=== PATIENT | female | born 1940 | race Caucasian/White ===

== ENCOUNTER → 2017-04-07 09:39 | Outpatient (CLI) | payer MEDICARE, BC, SELFPAY ==
--- NOTE | 2017-04-07 09:45 | MM_ITS ---
MM Dig screening mamm BI w/CAD CAD Screening COMPARISON: Digital mammograms 03/12/2015 and 2016 INDICATION: There is no personal or family history of breast cancer. There has been previous biopsy left breast. TECHNIQUE: Standard CC and MLO images were obtained. R2 CAD reviewed. FINDINGS: Prominent fibroglandular densities are seen in the subareolar regions of both breast slightly more diffuse right breast than left. There is a mole marker each breast. There are couple benign-appearing calcifications left breast single benign-appearing calcification right breast. There is no suspicious lesion and there are no suspicious microcalcifications. IMPRESSION: Stable exam with no suspicious lesion seen BI-RADS Category: 2 Benign Finding(s) RECOMMENDED FOLLOW-UP: 1YR - 1 YEAR FOLLOW-UP (A letter has been sent to the patient regarding results of the study.)
== END ==
PROVIDERS: Family Provider Family Medicine; PCP Family Medicine; Visit Provider Family Medicine
DX: Z12.31 Encounter for screening mammogram for malignant neoplasm of breast (principal)
CPT/HCPCS: 77067

== ENCOUNTER → 2018-04-11 08:37 | Outpatient (CLI) | payer MEDICARE, BC, SELFPAY ==
--- NOTE | 2018-04-11 08:40 | MM_ITS ---
MM Dig screening mamm BI w/CAD CAD Screening COMPARISON: Digital mammograms with CAD 04/07/2017 and to 2016 INDICATION: There is no personal or family history of breast cancer. There is been previous biopsy left breast for benign disease. TECHNIQUE: Standard CC and MLO images were obtained. R2 CAD reviewed. FINDINGS: Moderate fiber glandular densities are seen in both breasts more prominent right than left. There is a mole marker in each breast. There are stable tiny nodular densities lower central portion of the right breast. There is no suspicious lesion and there are no suspicious microcalcifications. IMPRESSION: Moderate breast density with no suspicious lesion seen BI-RADS Category: 2 Benign Finding(s) RECOMMENDED FOLLOW-UP: 1YR - 1 YEAR FOLLOW-UP (A letter has been sent to the patient regarding results of the study.)
== END ==
PROVIDERS: PCP Family Medicine; Visit Provider Family Medicine
DX: Z12.31 Encounter for screening mammogram for malignant neoplasm of breast (principal)
CPT/HCPCS: 77067

== ENCOUNTER 2020-05-11 10:09 | Emergency (ER) | payer MEDICARE, BC, SELFPAY ==
[2020-05-11 10:23] VITALS: BP 132/78; PULSE 92; RESP 20; TEMP 36.8; O2SAT 98; BMI 26.5
[2020-05-11 10:34] VITALS: BP 129/83; PULSE 87; RESP 16; TEMP 36.8; O2SAT 99; BMI 26.6
[2020-05-11 10:45] LABS: Apearance,Urine Clear (Clear); Bilirubin,Urine 1+ (Negative); Blood, Urine 2+ (Negative); Color,Urine Yellow (Yellow); Glucose,Urine (UA) Negative (Negative); Ketones,Urine Negative (Negative); Protein,Urine 1+ (Negative); UTC Leukocyte Esterase,Urine Trace (Negative); UTC Nitrate,Urine Negative (Negative); Urobilinogen,Urine 0.2 EU/dl (0.2)
--- NOTE | 2020-05-11 10:56 | HMH.EDUTC ---
[facility] [place] Disposition Clinical Impression: UTI (urinary tract infection) Qualifiers: Urinary tract infection type: acute cystitis Hematuria presence: without hematuria Qualified Code(s): N30.00 - Acute cystitis without hematuria Disposition: Home, Self-Care Condition on Discharge: Good Instructions: Urinary Tract Infection Additional Instructions: Increase fluids, water and not soda or tea. Can drink cranberry juice or cranberry extract. White front to back Wear cotton underwear Empty bladder after intercourse Start antibiotics tomorrow and make sure you take the full course although you may start to see improvement over the next 48 hours. Be sure to follow-up anytime for new or worsening symptoms in 48 hours for wound urine culture results be sure to let you PCP no recent urine for culture so they can request records and ensure that you have appropriate antibiotic if you are not getting better or getting worse. If symptoms worsen or do not improve return or be seen in the ER. Follow-up with primary care this week. Prescriptions: cephALEXin [Cephalexin 500mg Tab] 500 mg PO BID 4 Days #8 tab Transmission Status: Pending to [id number] Referrals: Alonso Sharma MD [Primary Care Provider] - Time of Disposition: 13:08 Medical Decision Making - [place] Inquiry Pt receiving controlled substance: No Vital Signs: 05/11/20 10:23 05/11/20 10:34 05/11/20 11:02 Temperature 98.3 F 98.3 F 98 F Temperature Source Oral Oral Pulse Rate 96 H Pulse Rate [Left Radial] 92 H 87 Respiratory Rate 20 16 14 Blood Pressure 139/84 Blood Pressure [Right Arm] 132/78 129/83 Blood Pressure Mean [Right Arm] 96 98 Blood Pressure Source [Right Arm] Automatic Cuff Blood Pressure Position [Right Arm] Sitting 02 Sat by Pulse Oximetry 98 99 Oxygen Delivery Method Room Air - Lab Data Lab Results 05/11/20 10:23: Urine Color Yellow, Urine Appearance Clear, Urine pH 6.0, Ur Specific [place] 1.010, Urine Protein 1+, Urine Glucose (UA) Negative, Urine Ketones Negative, Urine Blood 2+, Urine Nitrate Negative, Urine Bilirubin 1+ A, Urine Urobilinogen 0.2, Ur Leukocyte Esterase Trace 05/11/20 11:15: WBC 7.6, RBC 4.66, Hgb 13.2, Hct 41.1, MCV 88.4, MCH 28.3, MCHC 32.0, RDW 12.7, Plt Count 228, MPV 8.3, Neut % (Auto) 76.6, Lymph % (Auto) 13.9, [place] % (Auto) 8.0, Eos % (Auto) 1.1, Baso % (Auto) 0.4, Neut # (Auto) 5.8, Lymph # (Auto) 1.1, [place] # (Auto) 0.6, Eos # (Auto) 0.1, Baso # (Auto) 0.0 05/11/20 11:15: Sodium 133 L, Potassium 3.4 L, Chloride 96 L, Carbon Dioxide 28, Anion Gap 12.4, BUN 25 H, Creatinine 1.10 H, Estimated Creat Clear 42, Estimated GFR 48 L, Est GFR ( Amer) 58 L, Glucose 123 H, Calcium 10.1, Total Bilirubin 0.5, AST 30, ALT 28, Alkaline Phosphatase 125, Total Protein 7.7, Albumin 4.1, Globulin 3.6 H, Albumin/Globulin Ratio 1.1 05/11/20 11:15: Lactate 1.2 Result diagrams: 05/11/20 11:15 05/11/20 11:15 Orders (Tests/Meds): ED MEDICATIONS Generic Name Dose Route Start Last Admin Trade Name Freq PRN Reason Stop Dose Admin Sodium Chloride 1,000 mls @ 999 mls/hr 05/11/20 12:30 05/11/20 12:27 Sod Chlor 0.9% 1000ml Bag IV 05/11/20 13:30 999 mls/hr .[id number] GRACE Administration Discontinued Medications Generic Name Dose Route Start Last Admin Trade Name Freq PRN Reason Stop Dose Admin Ceftriaxone Sodium 1 gm 05/11/20 10:56 05/11/20 11:01 Ceftriaxone 1gm Vial IM 05/11/20 10:57 1 gm ONCE ONE Administration Protocol Lidocaine HCl 0 ml 05/11/20 10:56 05/11/20 11:02 Lidocaine 1% 5ml Pf Vial IM 05/11/20 10:57 2 ml ONCE ONE Administration ORDERS Category Date Time Status Urine Culture Stat Micro 05/11/20 10:40 Received - Physician Consults Physician Consulted: nery Time: 11:01 Reason -: Pt condition Comment/Response: discussed ua results and pt condition he recommended labs to check kidney function. called back at 1210 to discussed labs, he recommends 1
[2020-05-11 11:02] VITALS: BP 139/84; PULSE 96; RESP 14; TEMP 36.6
[2020-05-11 11:32] LABS: Basophils % 0.4 % (0.1-2.0); Eosinophils # 0.1 K/mm3 (0.0-0.4); Eosinophils % 1.1 % (0.1-12.0); Hematocrit 41.1 % (37.0-47.0); Hemoglobin 13.2 g/dL (12.2-16.2); Lymphocytes # 1.1 K/mm3 (0.7-4.5); Lymphocytes % 13.9 % (10-50); Mean Corpuscular Hemoglobin 28.3 pg (27.0-31.2); Mean Corpuscular Volume 88.4 fl (81-99); Mean Platelet Volume 8.3 fl (7.4-10.4); Monocytes # 0.6 K/mm3 (0.1-1.0); Neutrophils # 5.8 K/mm3 (1.8-7.8); Neutrophils % 76.6 % (37.0-80.0); Platelet Count 228 K/mm3 (142-424); Red Blood Count 4.66 M/mm3 (4.20-5.40); Red Cell Distribution Width 12.7 % (11.5-17.5); White Blood Count 7.6 K/mm3 (4.8-10.8)
[2020-05-11 11:36] LABS: Chloride 96 mmol/L (98-107); Potassium 3.4 mmoL/L (3.5-5.1); Sodium 133 mmol/L (136-145)
[2020-05-11 11:39] LABS: Alanine Aminotransferase 28 U/L (12-78); Albumin Level 4.1 g/dl (3.5-5.0); Albumin/Globulin Ratio 1.1 (1.1-1.8); Alkaline Phosphatase 125 U/L (38-126); Anion Gap 12.4 mEq/L (5-15); Aspartate Amino Transferase 30 U/L (14-36); Bilirubin,Total 0.5 mg/dl (0.2-1.3); Blood Urea Nitrogen 25 mg/dl (7-17); Carbon Dioxide 28 mmol/L (22.0-30.0); Creatinine Clearance Estimated 42 mL/min (50-200); Estimated Glomerular Filt Rate 48 ml/min (>60); GFR (African American) 58 ML/MIN (>60); Globulin 3.6 g/dL (1.3-3.2); Total Protein,Serum 7.7 g/dl (6.3-8.2)
[2020-05-11 11:40] LABS: Calcium 10.1 mg/dl (8.4-10.2); Glucose 123 mg/dl (74-100); Lactic Acid 1.2 mmol/L (0.7-2.1)
== END 2020-05-11 13:10 | disposition home or self-care (01) ==
PROVIDERS: Emergency Provider Nurse Practitioner Family; PCP Family Medicine
DX: N30.00 Acute cystitis without hematuria (principal); I10 Essential (primary) hypertension; K21.9 Gastro-esophageal reflux disease without esophagitis; E78.5 Hyperlipidemia, unspecified
CPT/HCPCS: G0463; 80053; 81003; 83605; 85025; 87086; 96365; 96372; 99202

== ENCOUNTER → 2020-06-04 09:12 | Outpatient (CLI) | payer MEDICARE, BC, SELFPAY ==
--- NOTE | 2020-06-04 09:13 | MM_ITS ---
PROCEDURE INFORMATION: Exam: MG Screening 3D Mammography Exam date and time: 06/04/2020 9:13 AM Age: 79 years old Clinical indication: Encounter for screening mammogram for malignant neoplasm of breast TECHNIQUE: Imaging protocol: Screening tomosynthesis and 2D mammography including computer-aided detection (CAD) when performed. COMPARISON: 1. MG SCBI MM Dig screening mamm BI w/CAD 04/11/2018 9:05 AM 2. MG SCBI MM Dig screening mamm BI w/CAD 04/07/2017 9:51 AM 3. MG DMDXUWAL DIG MAMM-DX UNI LT W/AVS W/CAD 09/23/2016 2:01 PM 4. MG DMDXUWAL DIG MAMM-DX UNI LT W/AVS W/CAD 03/24/2016 2:13 PM FINDINGS: MAMMOGRAPHY: Breast composition: The breasts are heterogeneously dense, which may obscure small masses. Mass: No new suspicious masses. Architectural distortion: No suspicious distortion. Calcifications: No suspicious calcifications. Asymmetric density: None. Skin thickening: None. Axillary adenopathy: None. IMPRESSION: No mammographic evidence of malignancy. Annual screening is recommended unless otherwise clinically indicated. ASSESSMENT: BI-RADS Category 1: Negative
== END ==
PROVIDERS: PCP Family Medicine; Visit Provider Family Medicine
DX: Z12.31 Encounter for screening mammogram for malignant neoplasm of breast (principal)
CPT/HCPCS: 77063; 77067

== ENCOUNTER → 2021-06-19 09:30 | Outpatient (CLI) | payer MEDICARE, BC, SELFPAY ==
--- NOTE | 2021-06-19 09:41 | MM_ITS ---
PROCEDURE INFORMATION: Exam: MG Bilateral Screening 3D Mammography Exam date and time: 06/19/2021 9:54 AM Age: 80 years old Clinical indication: Screening mammogram. TECHNIQUE: Imaging protocol: Bilateral Screening tomosynthesis and 2D mammography including computer-aided detection (CAD) when performed. COMPARISON: 1. MG MM DIG SCREENING MAMM BI W/CAD 06/04/2020 9:22 AM 2. MG SCBI MM Dig screening mamm BI w/CAD 04/11/2018 9:05 AM 3. MG SCBI MM Dig screening mamm BI w/CAD 04/07/2017 9:51 AM 4. MG DMDXUWAL DIG MAMM-DX UNI LT W/AVS W/CAD 09/23/2016 2:01 PM FINDINGS: MAMMOGRAPHY: Breast composition: The breast is heterogeneously dense, which may obscure small masses. Mass: None. Architectural distortion: No new or suspicious architectural distortion. Calcifications: No new or suspicious calcifications are present Asymmetric density: No new or suspicious asymmetric density is present Skin thickening: None. Axillary adenopathy: None. IMPRESSION: No mammographic evidence of malignancy. Recommend annual screening mammography unless otherwise clinically indicated. ASSESSMENT: BI-RADS category 1: Negative
== END ==
PROVIDERS: PCP Family Medicine; Visit Provider Family Medicine
DX: Z12.31 Encounter for screening mammogram for malignant neoplasm of breast (principal)
CPT/HCPCS: 77063; 77067

== ENCOUNTER → 2022-06-25 09:40 | Outpatient (CLI) | payer MEDICARE, BC, SELFPAY ==
--- NOTE | 2022-06-25 09:45 | MM_ITS ---
PROCEDURE INFORMATION: Exam: MG Bilateral Screening 3D Mammography Exam date and time: 06/25/2022 9:38 AM Age: 81 years old Clinical indication: Screening mammogram TECHNIQUE: Imaging protocol: Bilateral Screening tomosynthesis and 2D mammography including computer-aided detection (CAD) when performed. COMPARISON: 1. MG MM DIG SCREENING MAMM BI W/CAD 06/19/2021 9:54 AM 2. MG MM DIG SCREENING MAMM BI W/CAD 06/04/2020 9:22 AM 3. MG SCBI MM Dig screening mamm BI w/CAD 04/11/2018 9:05 AM 4. MG SCBI MM Dig screening mamm BI w/CAD 04/07/2017 9:51 AM FINDINGS: MAMMOGRAPHY: Breast composition: There are scattered areas of fibroglandular density. Mass: None. Architectural distortion: No new or suspicious architectural distortion. Calcifications: No new or suspicious calcifications are present Asymmetric density: No new or suspicious asymmetric density is present Skin thickening: None. Axillary adenopathy: None. IMPRESSION: No mammographic evidence of malignancy. Recommend annual screening mammography unless otherwise clinically indicated. ASSESSMENT: BI-RADS category 1: Negative
== END ==
PROVIDERS: PCP Family Medicine; Visit Provider Family Medicine
DX: Z12.31 Encounter for screening mammogram for malignant neoplasm of breast (principal)
CPT/HCPCS: 77063; 77067

== ENCOUNTER 2023-07-01 10:38 | Outpatient (CLI) | payer MEDICARE, BC, SELFPAY ==
--- NOTE | 2023-07-01 10:45 | MM_ITS ---
PROCEDURE INFORMATION: Exam: MG Bilateral Screening 3D Mammography Exam date and time: 07/01/2023 10:35 AM Age: 82 years old Clinical indication: Screening examination TECHNIQUE: Imaging protocol: Bilateral Screening tomosynthesis and 2D mammography including computer-aided detection (CAD) when performed. COMPARISON: 1. MG MM DIG SCREENING MAMM BI W/CAD 06/25/2022 9:38 AM 2. MG MM DIG SCREENING MAMM BI W/CAD 06/19/2021 9:54 AM FINDINGS: MAMMOGRAPHY: Breast composition: The breasts are heterogeneously dense, which may obscure small masses. Mass: None. Architectural distortion: None. Calcifications: No suspicious calcifications. Asymmetric density: None. Skin thickening: None. Axillary adenopathy: None. IMPRESSION: No mammographic evidence of malignancy. Annual screening is recommended unless otherwise clinically indicated. ASSESSMENT: BI-RADS Category 1: Negative
== END 2023-07-01 23:59 | disposition home or self-care (01) ==
LOC: RAD 10:39
PROVIDERS: PCP Family Medicine; Visit Provider Family Medicine
DX: Z12.31 Encounter for screening mammogram for malignant neoplasm of breast (principal)
CPT/HCPCS: 77063; 77067

== ENCOUNTER 2023-09-13 15:28 | Outpatient (CLI) | payer MEDICARE, BC, SELFPAY ==
--- NOTE | 2023-09-13 15:42 | XR_ITS ---
FINAL REPORT CLINICAL HISTORY: PAIN IN RIGHT SHOULDER patient states has had knot on right arm for several years, recently started having pain in right shoulder FINDINGS: RIGHT SHOULDER Three views demonstrate no acute fracture or dislocation. The visualized joint spaces are normally aligned. There are mild degenerative changes of the acromioclavicular and glenohumeral joints. The soft tissues are unremarkable. IMPRESSION: No acute process. Reviewed, Interpreted and Dictated by Dragan Luna III, MD Transcribed by Elisa Kumar Authenticated and [facility]
== END 2023-09-13 23:59 | disposition home or self-care (01) ==
LOC: RAD 15:30
PROVIDERS: PCP Family Medicine; Visit Provider Family Medicine
DX: M25.511 Pain in right shoulder (principal)
CPT/HCPCS: 73030

== ENCOUNTER 2023-09-21 10:07 | Outpatient (CLI) | payer MEDICARE, BC, SELFPAY ==
--- NOTE | 2023-09-21 10:14 | XR_ITS ---
FINAL REPORT CLINICAL HISTORY: lt knee pain COMPARISON: None FINDINGS: Three views of the left knee reveal no evidence of fracture or dislocation. The bony alignment is normal. There is moderate to severe medial compartment degenerative change with severe medial compartment narrowing. There is no evidence of joint effusion. No localized soft tissue abnormality is seen. IMPRESSION: Moderate to severe medial compartment degenerative change and narrowing without acute abnormality identified. Reviewed, Interpreted and Dictated by Dragan Luna III, MD Transcribed by Lorraine Zabala Authenticated and [facility]
== END 2023-09-21 23:59 | disposition home or self-care (01) ==
LOC: RAD 10:11
PROVIDERS: PCP Family Medicine; Visit Provider Family Medicine
DX: M25.562 Pain in left knee (principal)
CPT/HCPCS: 73562

== ENCOUNTER 2023-10-05 07:54 | Outpatient (CLI) | payer MEDICARE, BC, SELFPAY ==
--- NOTE | 2023-10-05 07:54 | MR_ITS ---
FINAL REPORT CLINICAL HISTORY: Rt Shoulder Pain, limited rom. weakness in arm COMPARISON: None FINDINGS: Multi planar MR imaging of the right shoulder was performed. There is complete disruption and proximal retraction of the supraspinatus tendon. Retraction measures approximately 4.5 cm. There is superior subluxation of the humeral head relative to the bony glenoid. There is no abnormal fluid in the subacromial/subdeltoid bursa. The anterior and posterior glenoid candelaria appear intact. The biceps tendon appears disrupted and is not visualized. Moderate hypertrophic changes are noted of the acromioclavicular joint. There is a large joint effusion. IMPRESSION: Complete disruption supraspinatus tendon with proximal retraction. Disruption of the biceps tendon. Large joint effusion. Reviewed, Interpreted and Dictated by Miguel A Flores MD Transcribed by Lorraine Zabala Authenticated and [facility]
== END 2023-10-05 23:59 | disposition home or self-care (01) ==
LOC: RAD 07:54
PROVIDERS: PCP Family Medicine; Visit Provider Orthopaedic Surgery
DX: R22.31 Localized swelling, mass and lump, right upper limb (principal); M25.511 Pain in right shoulder
CPT/HCPCS: 73221

== ENCOUNTER 2024-07-04 15:11 | Outpatient (CLI) | payer MEDICARE, BC, SELFPAY ==
--- NOTE | 2024-07-04 15:15 | MM_ITS ---
PROCEDURE INFORMATION: Exam: MG Bilateral Screening 3D Mammography Exam date and time: 07/04/2024 3:24 PM Age: 83 years old Clinical indication: Screening examination TECHNIQUE: Imaging protocol: Bilateral Screening tomosynthesis and 2D mammography including computer-aided detection (CAD) when performed. COMPARISON: 1. MG MM DIG SCREENING MAMM BI W/CAD 07/01/2023 10:35 AM 2. MG MM DIG SCREENING MAMM BI W/CAD 06/25/2022 9:38 AM FINDINGS: MAMMOGRAPHY: Breast composition: There are scattered areas of fibroglandular density. Mass: None. Architectural distortion: None. Calcifications: No suspicious calcifications. Asymmetric density: None. Skin thickening: None. Axillary adenopathy: None. IMPRESSION: No mammographic evidence of malignancy. Annual screening is recommended unless otherwise clinically indicated. ASSESSMENT: BI-RADS Category 1: Negative.
== END 2024-07-04 23:59 | disposition home or self-care (01) ==
LOC: RAD 15:12
PROVIDERS: PCP Family Medicine; Visit Provider Family Medicine
DX: Z12.31 Encounter for screening mammogram for malignant neoplasm of breast (principal); R92.323 Mammographic fibroglandular density, bilateral breasts
CPT/HCPCS: 77063; 77067

== ENCOUNTER 2024-07-25 08:49 | Outpatient (CLI) | payer MEDICARE, BC, SELFPAY ==
--- OUTSIDE RECORDS SUMMARY | 2024-01-14 05:00 | XMS_ITS ---
Author Organization [facility] Address [address] [place] [id number] Care Team Providers Care Track And Field Coach Name Role Phone Alonso Sharma Primary Care Provider [phone] Allergies Allergen (clinical drug ingredient) Drug/Non Drug Allergy documented on EMR Reaction Allergy Type Onset Date Status amoxicillin / clavulanate Augmentin stomach upset Drug Allergy Active Substance with 2-oufiinf-4-methylglu taryl-coenzyme A reductase inhibitor mechanism of action (substance) Statins myalgias Drug Allergy Active Results Component Value Reference Range Notes CBC Venipuncture (in house) Reviewed date:01/19/2024 09:04:15 AM Interpretation:Normal Performing Lab: Notes/Report: Normal wbc 8.7 3.5 - 10 lymph 18.9% 15 - 50 mid 5.9% 2 - 15 gran 75.2% 35 - 80 rbc 4.78 3.5 - 5.5 hgb 14.0 11.5 - 16.5 hct 42.3 35 - 55 mcv 88.4 75 - 100 mch 29.3 25 - 35 mchc 33.2 31 - 38 platlet 258 100 - 400 P-Vitamin B12 Reviewed date:01/19/2024 09:04:15 AM Interpretation: Normal Performing Lab: Notes/Report: Test performed by [employer] [address] [place] [address] , [address], [place] [address] Bogdan Ibarra MD, Email Marketing Intern CLIA: [id number] Vitamin B12 732 537-0728 pg/mL P-Comprehensive Metabolic Pa helen (CMP) Reviewed date:01/19/2024 09:04:15 AM Interpretation:gluc 105 Performing Lab: Notes/Report: Test performed by [employer] [address] [place] [address] , [address], [place] [address] Bogdan Ibarra MD, Email Marketing Intern CLIA: [id number] Sodium 139 135-145 mmol/L Potassium 4.4 3.5-5.3 mmol/L Chloride 101 97-108 mmol/L CO2 27 22-32 mmol/L Glucose 105 65-99 mg/dL BUN 19 8-23 mg/dL Creatinine 0.81 0.50-1.00 mg/dL Calcium 10.2 8.6-10.4 mg/dL eGFR by Creatinine 71 >59 mL/min/1.73m2 Protein 7.0 6.0-8.3 g/dL Albumin 4.2 3.5-5.3 g/dL Alkaline Phosphatase 70 35-121 IU/L ALT (SGPT) 11 <5-47 IU/L AST (SGOT) 12 <5-40 IU/L Bilirubin, Total 0.5 <0.2-1.2 mg/dL A/G Ratio 1.5 1.1-2.5 P-Lipid Panel Reviewed date:01/19/2024 09:04:15 AM Interpretation:chol 261, trigs 150, chol/hdl 4.58, non-hdl 204, ldl 174 Performing Lab: Notes/Report: Test performed by [employer] [address] [place] [address] , [address], [place] [address] Bogdan Ibarra MD, Email Marketing Intern CLIA: [id number] Cholesterol 261 <200 mg/dL Triglycerides 150 <150 mg/dL HDL Cholesterol 57 >39 mg/dL Cholesterol / HDL Ratio 4.58 0.00-4.44 Ratio Non-HDL Cholesterol 204 <130 mg/dL LDL Cholesterol (Calculation) 174 <130 mg/dL LDL Cholesterol Levels* Less than 100 mg/dL Optimal 100 to 129 mg/dL Near Optimal/ Above Optimal 130 to 159 mg/dL Borderline High 160 to 189 mg/dL High 190 mg/dL and above Very High * Categories as recommended by the 2004 ATPIII guidelines LDL/HDL Ratio 3.1 <3.3 Ratio LDL Cholesterol Patient History Test Date: 01/15/2023 LDL Results: 171 Units: mg/dL % Change: - Test Date: 01/14/2024 LDL Results: 174 Units: mg/dL % Change: +1% P-Magnesium Reviewed date:01/19/2024 09:04:15 AM Interpretation: Normal Performing Lab: Notes/Report: Test performed by [employer] [address] [place] [address] , [place] , [place] [address] Bogdan Ibarra MD, Email Marketing Intern CLIA: [id number] Magnesium 2.2 1.6-2.4 mg/dL P-Phosphorus Reviewed date:01/19/2024 09:04:15 AM Interpretation: Normal Performing Lab: Notes/Report: Test performed by [employer] [address] [place], [place] [address] [place] , [address], [place] [address] Bogdan Ibarra MD, Email Marketing Intern CLIA: [id number] Phosphorus 3.6 2.5-4.5 mg/dL P-Microalbumin/Creatinine, R andom Urine Sample Reviewed date:01/19/2024 09:04:15 AM Interpretation: Normal Performing Lab: Notes/Report: Test performed by [employer] [address] [place] [address] , [place] [address] Bogdan Ibarra MD, Email Marketing Intern CLIA: [id number] Albumin/Creatinine Ratio, Urine 8 0-30 ug/m g Microalbumin, Urine, Random 0.5 Creatinine, Urine 62.7 P-Vitamin D 25-Hydroxy Reviewed date:01/19/2024 09:04:15 AM Interpretation: Normal Performing Lab: Notes/Report: Test performed by [employer] [address] [place] [address] , [address], [place] [address] Bogdan Ibarra MD, Email Marketing Intern CLIA: [id number] Vitamin D 25-Hydroxy 64.7 30.0-100.0 ng/mL Interpretation of Vitamin D 25 OH: < 20 ng/mL - Deficiency 20 - 29 ng/mL - Insufficiency 30 - 100 ng/mL - Sufficiency > 100 ng/mL - Super-therapeutic- toxicity may occur above this level. Clinical correlation required. REASON FOR VISIT 6 months Medications Medication SIG (Take, Route, Frequency, Duration) Notes Start Date End Date Status Zinc 50 MG 1 tab(s) orally once a day for 30 day(s) Active Lisinopril 10 MG 1 tab(s) orally once a day for 90 days 07/10/2013 Active Omeprazole 20 MG 1 cap(s) orally once a day Active Carvedilol 6.25 MG 1 tab(s) orally 2 ti mes a day 10/21/2016 Active Vitamin D3 50 MCG (2000 UT) 2 tab(s) orally once a day A ctive Calcium 600 + Minerals 600-200 MG-UNIT 1 tab(s) orally once daily Active Ridgeview 3 1000 MG 1 capsule Orally Onc e a day for 30 day(s) Active Ezetimibe 10 MG 1 tab(s) orally once a day for 90 days Active Triamterene-HCTZ 37.5-25 MG 1/2 tab(s) orally once a day for 90 days 07/23/2015 Active Immunizations Vaccine Route Administration Date Status Comme nts Fluzone High Dose (65yr and older) IM Intramuscular 01/14/2024 Administered Vital Signs Blood pressure systolic 128 mm Hg 01/14/20 24 Blood pressure diastolic 64 mm Hg 024 Heart Rate 77 /min 01/14/2024 Height 61.50 in 01/14/2024 Weight 145.0 lbs 01/14/2024 BMI 26.95 kg/m2 01/14/2024 Encounters Encounter Location Date Provider Diagnosis [facility] [address] [place] [address] [address] [facility] [address] [place] [id number] 01/14/2024 Alonso Sharma HTN (hypertension) I 10 ; Hyperlipidemia E78.5 ; Gastroesophageal reflux disease, esophagitis presence not specified K21.9 ; Vitamin D deficiency E55.9 ; Other fatigue R53.83 and Encounter for immunization Z23 Assessments Encounter Date Diagnosis (ICD Code) Assessment Notes Treatment Notes Treatment Clinical Notes Section Notes 01/14/2024 HTN (hypertension) (ICD-10 - I10) 01/14/2024 Hyperlipidemia (ICD-10 - E78.5) 01/14/2024 Gastroesophageal reflux disease, esophagitis presence not specified (ICD-10 - K21.9) 01/14/2024 Vitamin D deficiency (ICD-10 - E55.9) 01/14/2024 Other fatigue (ICD-10 - R53.83) 01/14/2024 Encounter for immunization (ICD-10 - Z23) Plan Of Treatment Medication Medication Name Sig Start Date Stop Date Notes Ezetimibe 10 MG 1 tab(s) orally once a day for 90 days Next Appt Details Follow Up: 6 Months, Reason: Provider Name:Alonso Benjamin , 01/16/2025 09:00:00 AM, [address] [facility] [address] [facility], [address], [place], [id number], Progress Notes * Kourtney BRANDON HDOB: [birth year] (83 yo F)Acc No.[id number]:01/14/2024 Progress Notes Patient: Molly BHATTIycoleg Lynn Provider: Arely Sharma M.D. :1940 A ge:83 Y S ex:Female Date:01/14/2024 Address:[address] [place] [address], [id number] Subjective: * Chief Complaints: * 1 . 6 months. * HPI: C ardiology: 83 year old female presents with c/o Blood Pressure Elevated?Pt here for 6 mo f/u on hypertension, states she is doing well and does not have any concerns at this time. c/o Hyperlipidemia P t is fasting today. * ROS: D ERMATOLOGY: no R ramon. n o H charlie. G ASTROENTEROLOGY: no N ausea. n o V omiting. U ROLOGY: no D ifficulty urinating. n o B lood in urine. * Medical History: H ypertension, Vitamin D Deficiency, Hypercholestrolemia, Esophageal Reflux, Arthritis, Cataracts, Vitiligo, Colon polyps, Diverticulosis. * Surgical History: L T Breast Lumpectomy 2004, LT Kneer Lipoma Removal 2004, Colonoscopy 10/2016, Colonoscopy 06/14/2017. * Hospitalization/Major Diagno stic Procedure: D enies Past Hospitalization. * Family History: F ather: , hernia, heart attack. M other: , cancer. S iblings: sister- . 1 brother(s) , 5 sister(s) . 1 daughter(s) - healthy. . * Social History: C URRENT TOBACCO USE S moking Status: Patient does NOT smoke. C affeine: yes, frequency: 2-6 cups a day. Exercise: no. Marital Status: . Alcohol: No. Sexually active: yes. * Medications: T aking Ridgeview 3 1000 MG Capsule 1 capsule Orally Once a day , Taking Calcium 600 + Minerals 600-200 MG-UNIT Tablet 1 tab(s) orally once daily , Taking Vitamin D3 50 MCG (2000 UT) Capsule 2 tab(s) orally once a day , Taking Zinc 50 MG Tablet 1 tab(s) orally once a day , Taking Ezetimibe 10 MG Tablet 1 tab(s) orally once a day , Taking Carvedilol 6.25 MG Tablet 1 tab(s) orally 2 times a day , Taking Omeprazole 20 MG Capsule Delayed Release 1 cap(s) orally once a day , Taking Lisinopril 10 MG Tablet 1 tab(s) orally once a day , Taking Triamterene-HCTZ 37.5-25 MG Tablet 1/2 tab(s) orally once a day , Discontinued Macrobid 100 MG Capsule 1 capsule with food Orally every 12 hrs , Medication List reviewed and reconciled with the patient * Allergies: A ugmentin: stomach upset, Statins: myalgias - Side Effects. Objective: * Vitals: W t:145.0, Temp:97.5, BP:128/64, HR:77, Nurse:STEPHY, Ht: 61.50, BMI:26.95. * Examination: C ardiology: General Appearance: p leasant, NAD. HEENT: u nremarkable. Heart sounds: R RR, normal S1, S2. Lungs: c lear, no rales or wheezes. Extremities: n o leg edema. Peripheral pulses: 2 plus bilateral. ? Assessment: * Assessment: 1. H TN (hypertension) - I10 (Primary) 2 . H yperlipidemia - E78.5 ? 3 . G astroesophageal reflux disease, esophagitis presence not specified - K21.9 ? 4 . V itamin D deficiency - E55.9 5 . O ther fatigue - R53.83 & #160; 6 . E ncounter for immunization - Z23 Plan: * Treatment: Value Reference Range A /G Ratio 1.5 1.1-2.5 - * A lbumin 4.2 3.5-5.3 - g/dL * A lkaline Phosphatase 70 35-121 - IU/L * A LT (SGPT) 11 <5-47 - IU/L * A ST (SGOT) 12 <5-40 - IU/L * B ilirubin, Total 0.5 <0.2-1.2 - mg/dL * B UN 19 8-23 - mg/dL * C alcium 10.2 8.6-10.4 - mg/dL * C hloride 101 97-108 - mmol/L * C O2 27 22-32 - mmol/L * C reatinine 0.81 0.50-1.00 - mg/dL * G lucose 105 H 65-99 - mg/dL * P otassium 4.4 3.5-5.3 - mmol/L * S odium 139 135-145 - mmol/L * P rotein 7.0 6.0-8.3 - g/dL * e GFR by Creatinine 71 >59 - mL/min/1.73m2 * Liya Montes 01/19/2024 9:04 :11 AM >See phone encounter ?LAB: P-Microalbumin/Creatinine, Random Urine Sample (Collection Date & Time - 01/14/2024 10:55 AM)?Normal* Value Reference Range A lbumin/Creatinine Ratio, Urine 8 0-30 - ug /mg * C reatinine, Urine 62.7 - mg/dL * M icroalbumin, Urine, Random 0.5 - mg/dL * Liya Montes 01/19/2024 9:04 :11 AM >See phone encounter 2.?Hyperlipidemia? Refill Ezetimibe Tablet, 10 MG, 1 tab(s), orally, once a day, 90 days, 90, Refills 1.?LAB: P-Comprehensive Metabolic Panel (CMP) (Collection Date & Time - 01/14/2024 10:55 AM)?gluc 105* Value Reference Range A /G Ratio 1.5 1.1-2.5 - * A lbumin 4.2 3.5-5.3 - g/dL * A lkaline Phosphatase 70 35-121 - IU/L * A LT (SGPT) 11 <5-47 - IU/L * A ST (SGOT) 12 <5-40 - IU/L * B ilirubin, Total 0.5 <0.2-1.2 - mg/dL * B UN 19 8-23 - mg/dL * C alcium 10.2 8.6-10.4 - mg/dL * C hloride 101 97-108 - mmol/L * C O2 27 22-32 - mmol/L * C reatinine 0.81 0.50-1.00 - mg/dL * G lucose 105 H 65-99 - mg/dL * P otassium 4.4 3.5-5.3 - mmol/L * S odium 139 135-145 - mmol/L * P rotein 7.0 6.0-8.3 - g/dL * e GFR by Creatinine 71 >59 - mL/min/1.73m2 * Liya Montes 01/19/2024 9:04 :11 AM >See phone encounter ?LAB: P-Lipid Panel (Collection Date & Time - 01/14/2024 10:55 AM)?chol 261, trigs 150, chol/hdl 4.58, non-hdl 204, ldl 174* Value Reference Range C holesterol / HDL Ratio 4.58 H 0.00-4.44 - Ratio * C holesterol 261 H <200 - mg/dL * H DL Cholesterol 57 >39 - mg/dL * L DL Cholesterol (Calculation) 174 H <130 - mg/d L * L DL/HDL Ratio 3.1 <3.3 - Ratio * N on-HDL Cholesterol 204 H <130 - mg/dL * T riglycerides 150 H <150 - mg/dL * SimonLiya 01/19/2024 9:04 :11 AM >See phone encounter 3.?Vitamin D deficiency?LAB: P-Vitamin D 25-Hydroxy (Collection Date & Time - 01/14/2024 10:55 AM)? Normal* Value Reference Range V itamin D 25-Hydroxy 64.7 30.0-100.0 - ng/mL * SimonLiya 01/19/2024 9:04 :11 AM >See phone encounter 4.?Other fatigue?LAB: P-Vitamin B12 (Collection Date & Time - 01/14/2024 10:55 AM)?Normal* Value Reference Range V itamin B12 [phone] - pg/mL * SimonLiya 01/19/2024 9:04 :11 AM >See phone encounter ?LAB: P-Magnesium (Collection Date & Time - 01/14/2024 10:55 AM)?Normal* Value Reference Range M agnesium 2.2 1.6-2.4 - mg/dL * SimonLiya 01/19/2024 9:04 :11 AM >See phone encounter ?LAB: P-Phosphorus (Collection Date & Time - 01/14/2024 10:55 AM)?Normal* Value Reference Range P hosphorus 3.6 2.5-4.5 - mg/dL * SimonLiya 01/19/2024 9:04 :11 AM >See phone encounter ?LAB: CBC Venipuncture (in house) (Collection Date & Time - 01/14/2024)? Normal* Value Reference Range w bc 8.7 3.5 - 10 * l ymph 18.9% 15 - 50 * m id 5.9% 2 - 15 * g ran 75.2% 35 - 80 * r bc 4.78 3.5 - 5.5 * h gb 14.0 11.5 - 16.5 * h ct 42.3 35 - 55 * m cv 88.4 75 - 100 * m ch 29.3 25 - 35 * m chc 33.2 31 - 38 * p latlet 258 100 - 400 * Piedad Smith 01/14/2024 11:24:2 1 AM > Liya Montes 01/19/2024 9:04:11 AM >See phone encounter * Immunizations: Fluzone High Dose (65yr and older) : 0.5 mL (Route: Intramuscular) given by Piedad Smith on Left Deltoid (Encounter for immunization) * Procedure Codes: G 2211 Complex e/[place], [address] CBC WITH AUTO DIFF * Follow Up: 6 Months * Billing Information: * Visit Code: 48621 Office Visit, Est Pt., Level 4. * Procedure Codes: G2211 Complex e/[place]. [address] CBC WITH AUTO DIFF. * Electronic signature of Jina Sharma MD on 07/25/2024 at 08:53 AM EDT Sign off status: Pending * Provider: Arely Sharma M.D. Date: 03/16/2023 Generated for Maryi ng/Faneldag/eTransmitting on: 0 07/25/2024 08:53 AM EDT History and Physical Notes * HPI (History of Present Illness) Category Sub-Category Detail Notes Category Not es Cardiology Blood Pressure Elevated Pt here for 6 mo f/u on hypertension, states she is doing well and does not have any concerns at this time Hyperlipidemia Pt is fasting today Examination Category Sub-Category Detail Notes Category Not es Cardiology Lungs: clear, no rales or wheezes HEENT: unremarkable Heart sounds: RRR, normal S1, S2 Extremities: no leg edema Peripheral pulses: 2 plus bilateral General Appearance: pleasant, NAD
--- OUTSIDE RECORDS SUMMARY | 2024-07-17 05:00 | XMS_ITS ---
Author Organization [facility] Address [address] [place] [phone] Care Team Providers Care Internal Affairs Investigator Name Role Phone Alonso Sharam Primary Care Provider [phone] Allergies Allergen (clinical drug ingredient) Drug/Non Drug Allergy documented on EMR Reaction Allergy Type Onset Date Status amoxicillin / clavulanate Augmentin stomach upset Drug Allergy Active Substance with 0-ibwfath-2-methylglu taryl-coenzyme A reductase inhibitor mechanism of action (substance) Statins myalgias Drug Allergy Active REASON FOR VISIT 6 months Medications Medication SIG (Take, Route, Frequency, Duration) Notes Start Date End Date Status Triamterene-HCTZ 37.5-25 MG 1/2 tab(s) orally once a day for 90 days 07/23/2015 Active Lisinopril 10 MG 1 tab(s) orally once a day for 90 days 07/10/2013 Active Carvedilol 6.25 MG 1 tab(s) orally 2 ti mes a day for 90 days 10/21/2016 Active Omeprazole 20 MG 1 cap(s) orally once a day Active Zinc 50 MG 1 tab(s) orally once a day for 30 day(s) Active Ezetimibe 10 MG 1 tab(s) orally once a day for 90 days Active Vitamin D3 50 MCG (1999 UT) 2 tab(s) orally once a day A ctive Calcium 600 + Minerals 600-200 MG-UNIT 1 tab(s) orally once daily Active Cresson 3 1000 MG 1 capsule Orally Onc e a day for 30 day(s) Active Problems Problem Type SNOMED Code ICD Code Onset Dates Problem Status W/U Status Risk Notes Problem [id number] Other chronic pain (G89.29) Active confirmed Vital Signs Blood pressure systolic 140 mm Hg 07/18/19 25 Blood pressure diastolic 78 mm Hg 025 Heart Rate 70 /min 07/17/2024 Height 61.50 in 07/17/2024 Weight 145.6 lbs 07/17/2024 BMI 27.06 kg/m2 07/17/2024 Encounters Encounter Location Date Provider Diagnosis [facility] [address] [facility] [address] [place] [id number] 07/17/2024 Alonso Sharma HTN (hypertension) I 10 ; Gastroesophageal reflux disease, esophagitis presence not specified K21.9 ; Hyperlipidemia E78.5 ; Vitamin D deficiency E55.9 ; Pain in left knee M25.562 ; Other chronic pain G89.29 and BMI 27.0-27.9,adult Z68.27 Assessments Encounter Date Diagnosis (ICD Code) Assessment Notes Treatment Notes Treatment Clinical Notes Section Notes 07/17/2024 HTN (hypertension) (ICD-10 - I10) 07/17/2024 Gastroesophageal reflux disease, esophagitis presence not specified (ICD-10 - K21.9) 07/17/2024 Hyperlipidemia (ICD-10 - E78.5) 07/17/2024 Vitamin D deficiency (ICD-10 - E55.9) 07/17/2024 Pain in left knee (ICD-10 - M25.562) Patient to follow up with ortho at [facility] 07/17/2024 Other chronic pain (ICD-10 - G89.29) 07/17/2024 BMI 27.0-27.9,adult (ICD-10 - Z68.27) Plan Of Treatment Medication Medication Name Sig Start Date Stop Date Notes Triamterene-HCTZ 37.5-25 MG 1/2 tab(s) o rally once a day for 90 days 07/23/2015 Lisinopril 10 MG 1 tab(s) orally once a day for 90 days 07/10/2013 Carvedilol 6.25 MG 1 tab(s) orally 2 ti mes a day for 90 days 10/21/2016 Ezetimibe 10 MG 1 tab(s) orally once a day for 90 days Treatment Notes Assessment Notes Pain in left knee Patient to follow up with ortho at [facility] Next Appt Details Follow Up: 6 Months fasting, Reason: Provider Name:Alonso Benjamin ry, 01/16/2025 09:00:00 AM, [address], [address], [place], [phone], Progress Notes * Kourtney BRANDON HDOB: [birth year] (83 yo F)Acc No.[id number]:07/17/2024 Progress Notes Patient: Kourtney BHATTI Provider: Arely Sharma M.D. :1940 A ge:83 Y S ex:Female Date:07/17/2024 Address:[address] [place] [address], [place] Subjective: * Chief Complaints: * 1 . 6 months. * HPI: C ardiology: 83 year old female presents with c/o Blood Pressure Elevated?Pt here for 6 mo f/u on hypertension, states she is doing well and does not have any concerns.? c/o Hyperlipidemia P t is fasting today. [...] Sexually active: yes. * Medications: T aking Cresson 3 1000 MG Capsule 1 capsule Orally Once a day , Taking Calcium 600 + Minerals 600-200 MG-UNIT Tablet 1 tab(s) orally once daily , Taking Vitamin D3 50 MCG (2000 UT) Capsule 2 tab(s) orally once a day , Taking Zinc 50 MG Tablet 1 tab(s) orally once a day , Taking Omeprazole 20 MG Capsule Delayed Release 1 cap(s) orally once a day , Taking Ezetimibe 10 MG Tablet 1 tab(s) orally once a day , Taking Carvedilol 6.25 MG Tablet 1 tab(s) orally 2 times a day , Taking Lisinopril 10 MG Tablet 1 tab(s) orally once a day , Taking Triamterene-HCTZ 37.5-25 MG Tablet 1/2 tab(s) orally once a day , Medication List reviewed and reconciled with the patient * Allergies: A ugmentin: stomach upset, Statins: myalgias - Side Effects. Objective: * Vitals: W t: 145.6, Temp: 97.7, BP: 140/78, HR: 70, Nurse: ana, Ht: 61.50, BMI:27.06. * Examination: C ardiology: General Appearance: p leasant, NAD. HEENT: u nremarkable. Heart sounds: R RR, normal S1, S2. Lungs: c lear, no rales or wheezes. Extremities: n o leg edema, arthritic changes at left knee, pain along the medial joint line. Peripheral pulses: 2 plus bilateral. ? Assessment: * Assessment: 1. H TN (hypertension) - I10 (Primary) 2 . G astroesophageal reflux disease, esophagitis presence not specified - K21.9 3 . H yperlipidemia - E78.5 ? 4 . V itamin D deficiency - E55.9 5 . P ain in left knee - M25.562 6. O ther chronic pain - G89.29 7 . B WI 27.0-27.9,adult - Z68.27 Plan: * Treatment: 2. H yperlipidemia Refill Ezetimibe Tablet, 10 MG, 1 tab(s), orally, once a day, 90 days, 90, Refills 1. 3. P ain in left knee Notes: Patient to follow up with ortho at [facility] * Procedure Codes: G 2211 Complex e/m visit add on, G8950 PREHTN/HTN BP DOC INDCD F/U DOC, G8753 MOST RECENT SYSTOLIC BP >= 140MM HG, G8754 MOST RECENT DIASTOLIC BP < 90MM HG, G8420 BMI<30 AND >=22 CALC & DOCU, 1036F TOBACCO NON-USER * Follow Up: 6 Months fasting * Billing Information: * Visit Code: 96750 Office Visit, Est Pt., Level 4. * Procedure Codes: G2211 Complex e/m visit add on. G8950 PREHTN/HTN BP DOC INDCD F/U DOC. G8753 MOST RECENT SYSTOLIC BP >= 140MM HG. G8754 MOST RECENT DIASTOLIC BP < 90MM HG. G8420 BMI<30 AND >=22 CALC & DOCU. 1036F TOBACCO NON-USER. * Electronic signature of Jina Sharma MD on 07/25/2024 at 08:52 AM EDT Sign off status: Pending * Provider: Arely Sharma M.D. Date: 0 07/17/2024 Generated for Nany rivera/Donte/Liyahitting on: 0 07/25/2024 08:52 AM EDT History and Physical Notes * HPI (History of Present Illness) Category Sub-Category Detail Notes Category Not es Cardiology Blood Pressure Elevated Pt here for 6 mo f/u on hypertension, states she is doing well and does not have any concerns Hyperlipidemia Pt is fasting today Examination Category Sub-Category Detail Notes Category Not es Cardiology Lungs: clear, no rales or wheezes HEENT: unremarkable Heart sounds: RRR, normal S1, S2 Extremities: no leg edema, arthri tic changes at left knee, pain along the medial joint line Peripheral pulses: 2 plus bilateral General Appearance: pleasant, NAD
--- OUTSIDE RECORDS SUMMARY | 2024-07-18 06:54 | XMS_ITS ---
[facility] [address] [facility] [address] [facility] [address] [place] [id number] Care Team Providers Care Transportation Specialist Name Role Phone Alonso Sharma Primary Care Provider REASON FOR VISIT due for screening Encounters Encounter Location Date [facility] [address] [facility] [address] [facility] [address] [place] [id number] 07/18/2024 Alonso Sharma Screening for osteoporosis Z13.820 Assessments Encounter Date Diagnosis (ICD Code) Assessment Notes Treatment Notes Treatment Clinical Notes Section Notes 07/18/2024 Screening for osteoporosis (ICD-10 - Z13.820) Plan Of Treatment Pending Test Test Name Order Date Bone density 07/18/2024 Next Appt Details Provider Name:Alonso Benjamin ry, 01/16/2025 09:00:00 AM, [address] [facility] [address] [facility], [address], [place], [phone], Progress Notes * Kourtney BRANDON HDOB: [birth year] (83 yo F)Acc No.[id number]:07/18/2024 Patient: Kati DIAZBalwinderKourtney MAO :1940 A ge:83 Y S ex:Female [address], [place], [address] Subjective: * Chief Complaints: * D ue for screening * Medical History: * Surgical History: * Hospitalization/Major Diagno stic Procedure: * Medications: Objective: * Vitals: * Physical Examination: Assessment: * Assessment: 1. S creening for osteoporosis - Z13.820 (Primary) Plan: * Treatment: * Procedure Codes: * true * Date: Generated for Nany rivera/Donte/Fallon on: 0 07/25/2024 08:53 AM EDT
--- OUTSIDE RECORDS SUMMARY | 2024-07-25 08:53 | XMS_ITS | Patient Health Record ---
Author Organization [facility] Address [address] [place] [id number] Care Team Providers Care Credit Collector Name Role Phone Alonso Sharma Primary Care Provider Allergies Allergen (clinical drug ingredient) Drug/Non Drug Allergy documented on EMR Reaction Allergy Type Onset Date Status amoxicillin / clavulanate Augmentin stomach upset Drug Allergy Active Substance with 4-slcfmdm-5-methylglu taryl-coenzyme A reductase inhibitor mechanism of action (substance) Statins myalgias Drug Allergy Active Results Component Value Reference Range Notes P-Vitamin D 25-Hydroxy Reviewed date:01/19/2024 09:04:15 AM Interpretation: Normal Performing Lab: Notes/Report: Test performed by [facility] [address] [place], [place] [address] [place] , [address], [place] [address] Bogdan Ibarra MD, Machine Guide [employer] CLIA: [id number] Vitamin D 25-Hydroxy 64.7 30.0-100.0 ng/mL Interpretation of Vitamin D 25 [place]: < 20 ng/mL - Deficiency 20 - 29 ng/mL - Insufficiency 30 - 100 ng/mL - Sufficiency > 100 ng/mL - Super-therapeutic- toxicity may occur above this level. Clinical correlation required. P-Microalbumin/Creatinine, R andom Urine Sample Reviewed date:01/19/2024 09:04:15 AM Interpretation: Normal Performing Lab: Notes/Report: Test performed by [facility] [address] [place], [place] [address] [place] , [address], [place] [address] Bogdan Ibarra MD, Machine Guide [employer] CLIA: [id number] Albumin/Creatinine Ratio, Urine 8 0-30 ug/mg Microalbumin, Urine, Random 0.5 Creatinine, Urine 62.7 P-Phosphorus Reviewed date:01/19/2024 09:04:15 AM Interpretation: Normal Performing Lab: Notes/Report: Test performed by [facility] [address] [place] [address] , [address], [place] [address] Bogdan Ibarra MD, Machine Guide [employer] CLIA: [id number] Phosphorus 3.6 2.5-4.5 mg/dL P-Magnesium Reviewed date:01/19/2024 09:04:15 AM Interpretation: Normal Performing Lab: Notes/Report: Test performed by [facility] [address] [place] [address] , [address], [place] [address] Bogdan Ibarra MD, Machine Guide [employer] CLIA: [id number] Magnesium 2.2 1.6-2.4 mg/dL P-Lipid Panel Reviewed date:01/19/2024 09:04:15 AM Interpretation:chol 261, trigs 150, chol/hdl 4.58, non-hdl 204, ldl 174 Performing Lab: Notes/Report: Test performed by [facility] [address] [place] [address] , [address], [place] [address] Bogdan Ibarra MD, Machine Guide [employer] CLIA: [id number] Cholesterol 261 <200 mg/dL Triglycerides 150 <150 [...] ATPIII guidelines LDL/HDL Ratio 3.1 <3.3 Ratio ____ LDL Cholesterol Patient History ____ Test Date: 01/15/2023 LDL Results: 171 Units: mg/dL % Change: - ---- Test Date: 01/14/2024 LDL Results: 174 Units: mg/dL % Change: +1% ____ P-Comprehensive Metabolic Pa helen (CMP) Reviewed date:01/19/2024 09:04:15 AM Interpretation:gluc 105 Performing Lab: Notes/Report: Test performed by [facility] [address] [place] [address] , [address] , [place] [address] Bogdan Ibarra MD, Machine Guide [employer] CLIA: [id number] Sodium 139 135-145 mmol/L Potassium 4.4 3.5-5.3 [...] 0.5 <0.2-1.2 mg/dL A/G Ratio 1.5 1.1-2.5 P-Vitamin B12 Reviewed date:01/19/2024 09:04:15 AM Interpretation: Normal Performing Lab: Notes/Report: Test performed by [facility] [employer] [address] [place] [address] , [address], [place] [address] Bogdan Ibarra MD, Machine Guide [employer] CLIA: [id number] Vitamin B12 485 752-9126 pg/mL CBC Venipuncture (in house) Reviewed date:01/19/2024 09:04:15 [...] - 38 platlet 258 100 - 400 Urinalysis - Inhouse Reviewed date:09/14/2023 12:52:13 PM Interpretation: Performing Lab: Notes/Report: Color/Clarity yellow/clear Leuk 2+ Nitrite Neg Urobili 3.2 Protein Neg pH 7.0 Blood 1+ Sp. Gr. 1.015 Ketone Neg Bili Neg Gluc Neg TEN-UTI panel Reviewed date:09/16/2023 10:34:06 AM Interpretation:Abnormal Performing Lab: Notes/Report: Abnormal X ray : Shoulder, right Reviewed date:09/16/2023 10:33:46 AM Interpretation:nothing acute, mild degenerative changes Performing Lab: Notes/Report: nothing acute, mild degenerative changes Mammogram Reviewed date:07/07/2024 11:59:54 AM Interpretation:Negative, annual f/u Performing Lab: Notes/Report: Negative, annual f/u result Negative, annual f/u Reason For Referral Diagnosis 1 Pain in left knee (M 25.562) Diagnosis 2 Pain in right should er (M25.511) Referral Organization [facility] Referring Provider First Name Alonso Referring Provider Last Name Edith Referring Provider Speciality Family Pra ctice Referred Provider Paul Humphries Referred Provider Specialty Orthopedic S urgery General Notes Lissa Schwartz 3:18:15 PM > lvm for Dr. Humphries's office to call me back, Lissa Schwartz 09/13/2023 3:22:04 PM > 09/21/2023 Christopher GRIFFITH at 10:30am, Lissa Schwartz 09/13/2023 3:52:50 PM > patient informed Referral Priority Routine Medications Medication SIG (Take, Route, Frequency, Duration) Notes Start Date End Date Status Triamterene-HCTZ 37.5-25 MG 1/2 tab(s) orally once a day for 90 days 07/23/2015 Active Lisinopril 10 MG 1 tab(s) orally once a day for 90 days 07/10/2013 Active Carvedilol 6.25 MG 1 tab(s) orally 2 ti mes a day for 90 days 10/21/2016 Active Ezetimibe 10 MG 1 tab(s) orally once a day for 90 days Active Omeprazole 20 MG 1 cap(s) orally once a day Active Zinc 50 MG 1 tab(s) orally once a day for 30 day(s) Active Vitamin D3 50 MCG (2000 UT) 2 tab(s) orally once a day A ctive Calcium 600 + Minerals 600-200 MG-UNIT 1 tab(s) orally once daily Active [place] 3 1000 MG 1 capsule Orally Onc e a day for 30 day(s) Active Immunizations Vaccine Route Administration Date Status Comme nts COVID 19 Moderna Unknown 03/13/2020 Administered COVID 19 Moderna Unknown 04/10/2020 Administered COVID 19 Moderna Unknown 12/11/2020 Administered Fluzone High Dose (65yr and older) IM Intramuscular 01/16/2022 Administered Fluzone High Dose (65yr and older) IM Intramuscular 01/15/2023 Administered Fluzone High Dose (65yr and older) IM Intramuscular 01/14/2024 Administered PNEUMOVAX 23 VACCINE IM Intramuscular 01/22/2015 Administe red PNEUMOVAX 23 VACCINE IM Intramuscular 01/17/2021 Administe red Prevnar (PCV13) IM Intramuscular 01/09/2013 Administered Prevnar (PCV20) IM Intramuscular 01/16/2022 Administered Tetanus Tdap-Adacel (over 7yrs) IM Intramuscular 01/09/2013 Administered Problems Problem Type SNOMED Code ICD Code Onset Dates Problem Status W/U Status Risk Notes Problem 71405025 HTN (hypertensio n) (I10) Active confirmed Problem 84845467 Hyperlipidemia (E78.5) Active confirmed Problem 74754459 Vitamin D defici ency (E55.9) Active confirmed Problem 586699616 History of anemi a (Z86.2) Active confirmed Problem 80943810 Vitiligo (L80) Active confirmed Problem 89330778 Other chronic pa in (G89.29) Active confirmed Problem 458877411 Gastroesophageal reflux disease, esophagitis presence not specified (K21.9) Active confirmed Problem 186530615 Leukocytosis, unspecified type (D72.829) Active confirmed Problem 497105783 Diverticulosis o f colon (K57.30) Active confirmed Vital Signs Heart Rate 70 /min 07/17/2024 Blood pressure diastolic 78 mm Hg 07/17/2024 Height 61.50 in 07/17/2024 Blood pressure systolic 140 mm Hg 07/17/2024 Weight 145.6 lbs 07/17/2024 BMI 27.06 kg/m2 07/17/2024 Encounters Encounter Location Date Provider Diagnosis [facility] [address] [facility] [address], [place] [phone] 09/13/2023 Alonso Armada Acute UTI N39.0 ; Pa in in right shoulder M25.511 ; Pain in left knee M25.562 and Polyarthralgia M25.50 [facility] [address] [place], [place] [phone] 01/14/2024 Alonso Armada HTN (hypertension) I 10 ; Hyperlipidemia E78.5 ; Gastroesophageal reflux disease, esophagitis presence not specified K21.9 ; Vitamin D deficiency E55.9 ; Other fatigue R53.83 and Encounter for immunization Z23 [facility] [address] [place], [place] [id number] 07/17/2024 Alonso Armada HTN (hypertension) I 10 ; Gastroesophageal reflux disease, esophagitis presence not specified K21.9 ; Hyperlipidemia E78.5 ; Vitamin D deficiency E55.9 ; Pain in left knee M25.562 ; Other chronic pain G89.29 and BMI 27.0-27.9,adult Z68.27 [facility] [address] [place], [place] [id number] 08/16/2023 Alonso Armada HTN (hypertension) I 10 [facility] [address] [place], [place] [id number] 09/16/2023 Alonso Armada Pain in right should er M25.511 [facility] [address] [place], [place] [id number] 01/03/2024 Alonso Armada HTN (hypertension) I 10 [facility] [address] [place], [place] [id number] 01/19/2024 Alonso Armada [facility] [address] [place], [place] [id number] 01/24/2024 Alonso Armada HTN (hypertension) I 10 [facility] [address] [place], [place] [id number] 02/10/2024 Alonso Armada HTN (hypertension) I 10 [facility] [address] [place], [place] [id number] 07/04/2024 Alonso Armada HTN (hypertension) I 10 [facility] [address] [place], [place] [id number] 07/18/2024 Alonso Armada Screening for osteop orosis Z13.820 Assessments Encounter Date Diagnosis (ICD Code) Assessment Notes Treatment Notes Treatment Clinical Notes Section Notes 09/13/2023 Acute UTI (ICD-10 - N39.0) 09/16/2023 Pain in right shoulder (ICD-10 - M25.511) 01/03/2024 HTN (hypertension) (ICD-10 - I10) 01/14/2024 HTN (hypertension) (ICD-10 - I10) 01/14/2024 Hyperlipidemia (ICD-10 - E78.5) 08/16/2023 HTN (hypertension) (ICD-10 - I10) 09/13/2023 Pain in right shoulder (ICD-10 - M25.511) 01/24/2024 HTN (hypertension) (ICD-10 - I10) 02/10/2024 HTN (hypertension) (ICD-10 - I10) 07/04/2024 HTN (hypertension) (ICD-10 - I10) 07/17/2024 HTN (hypertension) (ICD-10 - I10) 07/17/2024 Gastroesophageal reflux disease, esophagitis presence not specified (ICD-10 - K21.9) 07/18/2024 Screening for osteoporosis (ICD-10 - Z13.820) 09/13/2023 Pain in left knee (ICD-10 - M25.562) 01/14/2024 Gastroesophageal reflux disease, esophagitis presence not specified (ICD-10 - K21.9) 07/17/2024 Hyperlipidemia (ICD-10 - E78.5) 01/14/2024 Vitamin D deficiency (ICD-10 - E55.9) 09/13/2023 Polyarthralgia (ICD-10 - M25.50) symptomatic treatment of pain. Return if worsening of pain or developement of new symptoms 07/17/2024 Vitamin D deficiency (ICD-10 - E55.9) 07/17/2024 Pain in left knee (ICD-10 - M25.562) Patient to follow up with ortho at [facility] 01/14/2024 Other fatigue (ICD-10 - R53.83) 01/14/2024 Encounter for immunization (ICD-10 - Z23) 07/17/2024 Other chronic pain (ICD-10 - G89.29) 07/17/2024 BMI 27.0-27.9,adult (ICD-10 - Z68.27) Plan Of Treatment Pending Test Test Name Order Date Bone density 07/18/2024 Next Appt Details Provider Name:Alonso Benjamin ry, 01/16/2025 09:00:00 AM, [address], [address], [place], [place], [id number], Insurance Providers Payer Name Payer Address Payer Phone Subscriber Number Group Number Insured Name Patient Relationship to Insured Coverage Start Date Coverage End Date MEDICARE PART B [address] [address] [place] [address] [id number] Kourtney Brandon Self - patient is the insured [facility] [address] [place] [address] [id number] Kourtney Issa Self - patient is the insured Medical (General) History Medical History History ICD Code Hypertension Vitamin D Deficiency Hypercholestrolemia Esophageal Reflux Arthritis Cataracts Vitiligo Colon polyps diverticulosis Surgical History Surgery Date(Month/Year) LT Breast Lumpectomy 2004 LT Kneer Lipoma Removal 2004 Colonoscopy 10/2016 Colonoscopy 06/14/2017 Hospitalization History Reason Date(Month/Year)
--- NOTE | 2024-07-25 08:54 | XR_ITS ---
FINAL REPORT TECHNIQUE: Bone mineral density was calculated of the lumbar spine and hip. CLINICAL HISTORY: SCREENING COMPARISON: None FINDINGS: Using L1-4, the bone mineral density of the spine is 0.909 g/cm2, corresponding to T-score of -1.3. Using the left hip, the bone mineral density of the femoral neck is 0.588 g/cm2, corresponding to a T-score of -2.4. Using the right hip, the bone mineral density of the femoral neck is 0.639 g/cm?, corresponding to a T-score of -1.9. NOTE: T-score: Standard deviation compared with peak bone mass of young adult mean. *Following the recommendations of the International Society of Bone densitometry, classification of hip BMD is based on the lower of two T-scores; total hip or femoral neck. IMPRESSION: Diminished bone mineral density of the lumbar spine and bilateral hips consistent with osteopenia. Reviewed, Interpreted and Dictated by Miguel A Flores MD Transcribed by Vida De León Authenticated and [facility]
== END 2024-07-25 23:59 | disposition home or self-care (01) ==
LOC: RAD 08:51
PROVIDERS: PCP Family Medicine; Visit Provider Family Medicine
DX: Z13.820 Encounter for screening for osteoporosis (principal); M81.0 Age-related osteoporosis without current pathological fracture
CPT/HCPCS: 77080

== ENCOUNTER 2025-01-16 10:15 | Outpatient (CLI) | payer MEDICARE, BC, SELFPAY ==
--- NOTE | 2025-01-16 10:16 | XR_ITS ---
FINAL REPORT CLINICAL HISTORY: left knee pain FINDINGS: LEFT KNEE 3 views of the left knee were obtained. There is no acute fracture or dislocation. There is moderate medial compartment joint space narrowing. Osteophytes are seen at the medial joint and the undersurface of the patella. Visualized joint spaces are normally aligned. Soft tissues are unremarkable. IMPRESSION: Moderate changes of osteoarthritis without acute bony abnormality. Reviewed, Interpreted and Dictated by Miguel A Flores MD Transcribed by Elisa Kumar Authenticated and [facility]
== END 2025-01-16 23:59 | disposition home or self-care (01) ==
LOC: RAD 10:16
PROVIDERS: PCP Family Medicine; Visit Provider Physician Assistant
DX: M17.12 Unilateral primary osteoarthritis, left knee (principal)
CPT/HCPCS: 73562